=== PATIENT | male | born 1995 | race Caucasian/White ===

== ENCOUNTER 2017-12-26 10:45 | Emergency (ER) | payer BC, OTHER ==
[~2017-12-26] VITALS: Ht 190.5 cm; Wt 90.7 kg
[2017-12-26 10:48] VITALS: BP 124/77
[2017-12-26] MEDS ORDERED: GUAIFENESIN/D-METHORPHAN HB 5 ML UDC PO ONE (11:00)
[2017-12-26] MEDS ORDERED: GUAIFENESIN/D-METHORPHAN HB 5 ML UDC ONE (11:01)
== END 2017-12-26 11:58 | disposition home or self-care (01) ==
LOC: ER 10:46
DX: J20.9 Acute bronchitis, unspecified (principal)
CPT/HCPCS: 71045-TC; A4606; Z7610